=== PATIENT | male | born 1975 | race Caucasian/White ===

== ENCOUNTER 2020-05-15 16:54 | Emergency (ER) | payer OTHER ==
[~2020-05-15 16:54] MED LIST: ASPIR 8181 MG PO; DOXYCYCLINE HY100 M2 PO; DOXYCYCLINE HY100 MG PO; FLEXERIL10 MG PO; GABAPENTIN400 MG PO; KEFLEX500 MG PO; MEDROL 4MG DOSEP4 MG PO; NORCO 5-325 TA1 EAC1 PO; PERCOCET 5-3251 EACH PO; PREDNISONE 20MG20 MG PO; VOLTAREN **OUT75 MG PO
[2020-05-15 17:29] LABS: BASOPHIL 0.9 % (0-2); EOSINOPHIL 2.7 % (0-5); HCT 45.8 % (42.0-52.0); HGB 15.1 g/dl (13.2-18.0); LYMPHOCYTE 30.3 % (15-48); MCV 100.2 fL (78.0-100.0); MONOCYTE 9.5 % (0-12); MPV 9.8 fL (6.0-9.5); NEUTROPHIL 56.1 % (41-80); NRBC 0; PLT 263 K/uL (150-400); RBC 4.57 M/uL (4.70-6.00); RDW 13.2 % (11.5-14.0); WBC 8.6 K/uL (4.0-10.5)
[2020-05-15 17:50] LABS: ALBUMIN 3.6 g/dL (3.4-5.0); BILIRUBIN - TOTAL 0.3 mg/dL (0.2-1.0); BUN/CREAT RATIO (CALC) 17.4 RATIO; CREATININE 0.86 mg/dL (0.67-1.17); GLOBULIN (CALCULATION) 3.6 g/dL; POTASSIUM 4.1 mmol/L (3.5-5.1); TOTAL PROTEIN 7.2 g/dL (6.4-8.2)
[2020-05-15 18:22] LABS: BILIRUBIN NEGATIVE (NEGATIVE); BLOOD NEGATIVE Ery/uL (NEGATIVE); CLARITY HAZY (CLEAR); COLOR YELLOW (YELLOW); GLUCOSE (U) NORMAL (NORMAL); LEUKOCYTES NEGATIVE Leu/uL (NEGATIVE); NITRITE NEGATIVE (NEGATIVE); PROTEIN NEGATIVE (NEGATIVE); SPECIFIC GRAVITY 1.015 (1.001-1.030); UROBILINOGEN 0.2 mg/dL (0.2-1.0)
[2020-05-15 18:28] LABS: CORONAVIRUS 2019 SARS-COV-2 NEGATIVE (NEGATIVE); INFLUENZA A NAA NEGATIVE (NEGATIVE)
[2020-05-15] MEDS ORDERED: PREDNISONE 20MG20 MG PO ×2 (19:06)
== END 2020-05-15 19:55 | disposition home or self-care (01) ==
LOC: FER 16:54
PROVIDERS: Nurse Practitioner Family
DX: J44.1 Chronic obstructive pulmonary disease with (acute) exacerbation (principal); F17.290 Nicotine dependence, other tobacco product, uncomplicated; Z87.09 Personal history of other diseases of the respiratory system; Z88.0 Allergy status to penicillin; Z20.822 Contact with and (suspected) exposure to COVID-19
CPT/HCPCS: 36415; 71046; 80053; 81003; 84484; 85025; 93005; 94664; J2930; U0002

== ENCOUNTER 2020-10-20 13:14 | Emergency (ER) | payer OTHER ==
[2020-10-20] MEDS ORDERED: VENTOLIN HFA IN18 GM INH (16:48)
[2020-10-20] MEDS ORDERED: MEDROL 4MG DOSEP4 MG PO (16:48)
== END 2020-10-20 17:05 | disposition home or self-care (01) ==
LOC: FER 13:14
DX: U07.1 COVID-19 (principal); J44.9 Chronic obstructive pulmonary disease, unspecified; Z88.0 Allergy status to penicillin
CPT/HCPCS: 99283; U0002